=== PATIENT | male | born 1995 | race Caucasian/White ===

== ENCOUNTER 2016-12-02 14:35 | Emergency (ER) | payer BC ==
[2016-12-02 14:50] VITALS: TEMP 98.1; O2SAT 98
--- NOTE | 2016-12-02 15:41 | EDPHY ---
H & P Stated Complaint: Sharp pain L shoulder,L upper chest; no injury, no other sxs Time Seen by Provider: 12/02/16 15:40 - Personal History Current Tetanus Diphtheria and Acellular Pertussis (TDAP): Yes - Medical/Surgical History Other PMH: heart murmur - Social History Smoking Status: Never smoked Constitutional: Initial Vital Signs Temperature (C) 36.7 C 12/02/16 14:45 Heart Rate 108 H 12/02/16 14:45 Respiratory Rate 18 12/02/16 14:45 Blood Pressure 141/79 H 12/02/16 14:45 O2 Sat (%) 98 12/02/16 14:45 O2 Delivery Mode Room Air Allergies/Adverse Reactions: No Known Allergies Allergy (Unverified 12/02/16 14:46) Home Medications: Medication Instructions Recorded NK [No Known Home Meds] 12/02/16 Medical Decision Making - Diagnostics Imaging Results: Imaging Impressions Chest X-Ray 12/02/16 16:08 Impression: Normal. No explanation for left-sided pain. Imaging: Discussed imaging studies w/ call center director Radiologist, I viewed and interpreted images myself ED Course/Re-evaluation: CHIEF COMPLAINT: Chest pain HISTORY OF PRESENT ILLNESS: The patient is a 21 y/o male arriving with his friends complaining of moderate acute onset left-sided chest pain that began around 13:20, about 2.5 hours ago. His symptoms began while driving home and radiate somewhat into his shoulder. He had some associated nausea and dyspnea that has since resolved. He has no change in pain with movement of his arm, though it is slightly worse with deep inspiration. He denies any preceding trauma, heavy lifting, or illness. He has no personal or family history of blood clots or cardiac disease. REVIEW OF SYSTEMS: A 10 point review of systems was performed and is negative with the exception of the elements mentioned in the history of present illness. PHYSICAL EXAM: HR, BP, O2 Sat, RR. Temp noted General Appearance: Alert, well hydrated, appropriate, and non-toxic appearing. Head: Atraumatic without scalp tenderness or obvious injury Eyes: Pupils equal, round, reactive to light and accommodation, EOMI, no trauma , no injection. Nose: Atraumatic, no rhinorrhea, clear. Throat: There is no erythema or exudates, no lesions, normal tonsils, mucus membranes moist. Neck: Supple, nontender, no lymphadenopathy. Respiratory: No retractions, no distress, no wheezes, and no accessory muscle use. Lungs are clear to auscultation bilaterally. Cardiovascular: Regular rate and rhythm, tiny Stills 1/6 systolic ejection murmur, rubs, or gallops. Bilateral carotid, radial, dorsalis pedis, and posterior tibial pulses intact. Good capillary refill all extremities. Gastrointestinal: Abdomen is soft, nontender, non-distended, no masses, no rebound, no guarding, no peritoneal signs. Musculoskeletal: Normal active ROM of all extremities, atraumatic. Slight left anterior chest pain with palpation. Neurological: Alert, appropriate, and interactive. The patient has non-focal cranial nerves, motor, sensory, and cerebellar exam. Skin: No rashes, good turgor, no nodules on palpation. Past medical history: Denies Past surgical history: Denies Family history: No cardiac disease at early age Social history: Friends at bedside DIAGNOSTICS/PROCEDURES/CRITICAL CARE TIME: Chest x-ray: negative The 12 lead EKG was interpreted by myself. Sinus rhythm rate 92. See hard copy and/or "tracemaster" electronic copy for interpretation. DIFFERENTIAL DIAGNOSIS: The differential diagnosis for the patient's chest pain included but was not limited to musculoskeletal causes, myocardial ischemia , pulmonary embolus, chest wall pain, pleural inflammation, and pulmonary infectious causes. MEDICAL DECISION MAKING: This is a healthy 21 y/o male who presents with a 2.5-hour history of acute onset left anterior chest pain while driving. He has no risk factors for blood clots or cardiac disease. His pain is slightly reproducible with palpation over his left anterior superior chest. Plan for IV, labs including troponin and d- dimer, EKG, and chest x-ray. 30mg IV Toradol administered. Reassessed patient and discussed work up. He feels improved. His work up here is completely negative. He will be discharged home with care instructions for musculoskeletal chest pain and PCP follow up instructions. He is comfortable with this plan. Return precautions discussed. - Data Points Laboratory Results: Laboratory Results 12/02/16 16:20 12/02/16 16:20 12/02/16 12/02/16 12/02/16 16:20 16:20 16:20 WBC 8.87 10^3/uL 10^3/uL (3.80-9.50) RBC 5.16 10^6/uL 10^6/uL (4.40-6.38) Hgb 15.2 g/dL g/dL (13.7-17.5) Hct 43.9 % % (40.0-51.0) MCV 85.1 fL fL (81.5-99.8) MCH 29.5 pg pg (27.9-34.1) MCHC 34.6 g/dL g/dL (32.4-36.7) RDW 12.6 % % (11.5-15.2) Plt Count 304 10^3/uL 10^3/uL (150-400) MPV 9.6 fL fL (8.7-11.7) Neut % (Auto) 70.9 % % (39.3-74.2) Lymph % (Auto) 19.6 % % (15.0-45.0) Meagher % (Auto) 8.0 % % (4.5-13.0) Eos % (Auto) 0.9 % % (0.6-7.6) Baso % (Auto) 0.3 % % (0.3-1.7) Nucleat RBC Rel Count 0.0 % % (0.0-0.2) Absolute Neuts (auto) 6.28 10^3/uL 10^3/uL (1.70-6.50) Absolute Lymphs (auto) 1.74 10^3/uL 10^3/uL (1.00-3.00) Absolute Monos (auto) 0.71 10^3/uL 10^3/uL (0.30-0.80) Absolute Eos (auto) 0.08 10^3/uL 10^3/uL (0.03-0.40) Absolute Basos (auto) 0.03 10^3/uL 10^3/uL (0.02-0.10) Absolute Nucleated RBC 0.00 10^3/uL 10^3/uL (0-0.01) Immature Gran % 0.3 % % (0.0-1.1) Immature Gran # 0.03 10^3/uL 10^3/uL (0.00-0.10) D-Dimer < 0.27 ug/mLFEU ug/mLFEU (0.00-0.50) Sodium 139 mEq/L mEq/L (134-144) Potassium 4.3 mEq/L mEq/L (3.5-5.2) Chloride 102 mEq/L mEq/L (97-110) Carbon Dioxide 23 mEq/l mEq/l (22-31) Anion Gap 14 mEq/L mEq/L (8-16) BUN 16 mg/dL mg/dL (7-23) Creatinine 1.0 mg/dL mg/dL (0.7-1.3) Estimated GFR > 60 Glucose 115 mg/dL H mg/dL (70-100) Calcium 9.9 mg/dL mg/dL (8.5-10.4) Troponin I < 0.012 ng/mL ng/mL (0.000-0.034) Medications Given: Discontinued Medications Ketorolac Tromethamine (Toradol) 30 mg IVP EDNOW ONE Stop: 12/02/16 16:09 Last Admin: 12/02/16 16:22 Dose: 30 mg Departure - Departure Disposition: Home, Routine, Self-Care Clinical Impression: Musculoskeletal chest pain Condition: Good Instructions: Chest Wall Pain (ED) Additional Instructions: Take 600mg ibuprofen every 6-8 hours for pain over the next few days. Follow up with your primary care provider for unimproved symptoms over the next few days. Return to the ED for worsening of condition. Referrals: DENA Ortiz,. [Clinic] - As per Instructions Report Scribed for: Tapan Eason Report Scribed by: Hermila Modi Date of Report: 12/02/16 Time of Report: 16:09
[2016-12-02] MEDS ORDERED: KETOROLAC 30 MG/1 ML SDV IVP ONE (16:08)
--- NOTE | 2016-12-02 16:24 | CPEKG ---
Heart Rate: 92 RR Interval: 652 P-R Interval: 144 QRSD Interval: 76 QT Interval: 328 QTC Interval: 406 P [place]: 77 QRS [place]: 91 T Wave [place]: 19 EKG Severity - BORDERLINE ECG - EKG Impression: SINUS RHYTHM EKG Impression: CONSIDER RIGHT VENTRICULAR HYPERTROPHY Electronically Signed By: Luis M Zepeda 07-Dec-2016 12:03:53
[2016-12-02 16:27] LABS: % IMMATURE GRANULYOCYTES 0.3 % (0.0-1.1); ABSOLUTE IMMATURE GRANULOCYTES 0.03 10^3/uL (0.00-0.10); ADD DIFF? NO; ADD MORPH? NO; ADD SCAN? NO; ATYPICAL LYMPHOCYTE FLAG 0 (0-99); FRAGMENT RBC FLAG 0 (0-99); HEMATOCRIT 43.9 % (40.0-51.0); HEMOGLOBIN 15.2 g/dL (13.7-17.5); LEFT SHIFT FLG 0 (0-99); LIPEMIA HEMOLYSIS FLAG 90 (0-99); MEAN CELL HEMOGLOBIN 29.5 pg (27.9-34.1); MEAN CELL HEMOGLOBIN CONCENTR. 34.6 g/dL (32.4-36.7); MEAN CELL VOLUME 85.1 fL (81.5-99.8); MEAN PLATELET VOLUME 9.6 fL (8.7-11.7); PLATELET CLUMPS FLAG 0 (0-99); PLATELET COUNT 304 10^3/uL (150-400); RED BLOOD CELL COUNT 5.16 10^6/uL (4.40-6.38); RED CELL DISTRIBUTION WIDTH 12.6 % (11.5-15.2)
[2016-12-02 16:39] LABS: ANION GAP 14 mEq/L (8-16); CALCIUM 9.9 mg/dL (8.5-10.4); CARBON DIOXIDE 23 mEq/l (22-31); CHLORIDE 102 mEq/L (97-110); GLOMERULAR FILTRATION RATE > 60; GLUCOSE 115 mg/dL (70-100); POTASSIUM 4.3 mEq/L (3.5-5.2); SODIUM 139 mEq/L (134-144)
[2016-12-02 16:51] LABS: TROPONIN I < 0.012 ng/mL (0.000-0.034)
[2016-12-02 17:06] VITALS: BP 134/71; PULSE 74; RESP 16
== END 2016-12-02 17:06 | disposition home or self-care (01) ==
DX: R07.89 Other chest pain (principal)
CPT/HCPCS: 96374; J1885